=== PATIENT | female | born 1965 | race Caucasian/White ===

== ENCOUNTER 2017-12-09 11:45 | Day surgery (SDC) | payer OTHER ==
[2017-12-09] MEDS ORDERED: Marcaine 0.5% SDV 10 ML IJ ONE (11:46)
[2017-12-09] MEDS ORDERED: DIPRIVAN 200 MG/20 ML IV ONE (11:46)
[2017-12-09] MEDS ORDERED: Xylocaine 1% Vial 30 ML PF IJ ONE (11:46)
--- NOTE | 2017-12-09 14:23 | XRAY ---
1 minute and 39 seconds fluoroscopy time in surgery for left C5-6 MBB.
--- NOTE | 2017-12-09 14:29 | XRAY ---
Indication: Left C5-C6 MBB. Intraoperative fluoroscopy was provided for 1 minute 39 seconds. 2 oblique digital spot images submitted for interpretation demonstrates spinal needle tips projecting over the C4-C5 and C5-C6 facets. Correlate with intraoperative findings/report.
[2017-12-09] MEDS ORDERED: Lactated Ringers 1,000 ML IV ONE (14:55)
--- NOTE | 2017-12-10 09:45 | OP ---
DATE OF PROCEDURE: 12/09/2017 1237 SURGEON: Juan Antonio Spain D.O. PREOPERATIVE DIAGNOSIS: Degenerative cervical spine disease, neck pain. POSTOPERATIVE DIAGNOSIS: Degenerative cervical spine disease, neck pain. PROCEDURE PERFORMED: Left C5-C6 medial branch block under fluoroscopic guidance. DESCRIPTION OF THE PROCEDURE: The patient was taken to the operating room and placed in the prone position on the table. Skin at the injection site was prepped and draped in sterile fashion. Under fluoroscopy, bony anatomy of the targeted injection site was visualized. Induction agent was given as per anesthesia while vital signs were monitored. Local anesthetic agent used 7.5 cc of 1% lidocaine preservative-free and 1.5 cc of 0.5% preservative-free Marcaine were injected into each of the targeted medial branch nerve to anesthetize the skin and the subcutaneous tissue through the injection site. Under fluoroscopic guidance, a #20 gauge standard spinal needle was advanced into the target medial branch through the oblique approach. After the needle was being removed, the skin was cleansed with alcohol and then a bandage was applied. No complications or adverse consequences were observed. The patient was returned to the holding area until stabilized before discharge to home. The preoperative pain level 8 out of 10 and postoperative pain level 3 out of 10. The patient will be followed up within ten days after the injection for re-evaluation.
== END 2017-12-09 13:50 | disposition home or self-care (01) ==
LOC: SDC-PAIN 11:45
PROVIDERS: ATTEND Internal Medicine
DX: M46.92 Unspecified inflammatory spondylopathy, cervical region (principal); M50.220 Other cervical disc displacement, mid-cervical region, unspecified level; M62.838 Other muscle spasm; M54.2 Cervicalgia; Z79.891 Long term (current) use of opiate analgesic
CPT/HCPCS: 64490; 64491; 72020; 77003; J2001; J2704